=== PATIENT | female | born 1980 | race Caucasian/White ===

== ENCOUNTER 2022-05-20 07:09 | Emergency (ER) | payer OTHER, SELFPAY ==
[2022-05-20 07:34] VITALS: BP 132/78; PULSE 97; RESP 18; TEMP 37.6; O2SAT 99; BMI 26.5
--- NOTE | 2022-05-20 07:41 | ED.URI ---
HPI - URI/Sore Throat General Chief Complaint: Upper Respiratory Symptoms Stated Complaint: neck swollen, hives Time Seen by Provider: 05/20/22 07:20 History of Present Illness HPI Narrative: Patient is a 41-year-old female who presents with sore throat and upper respiratory like symptoms ongoing for last couple of days. She previously had an urine infection she took leftover clindamycin for last night this morning she woke up with hives all over her neck and arms and trunk. She says it hurts to swallow but it has been hurting to swallow she has not felt well. She is previously taken clindamycin without any difficulty. She denies any new soaps or other things. Related Data Previous Rx's Medication Instructions Recorded epinephrine 0.3 mg/0.3 mL 0.3 mg (0.3 mL) IM Q5-15M PRN 05/20/22 injection, auto-injector anaphylaxis #2 ea prednisone 20 mg tablet 40 mg PO DAILY #10 tabs 05/20/22 Allergies Allergy/AdvReac Type Severity Reaction Status Date / Time Penicillins Allergy Rash Verified 05/20/22 07:33 Review of Systems Review of Systems ROS Unobtainable: All systems reviewed & are unremarkable except as noted in HPI and below Patient History Social History Smoking Status: Never smoker Exam Initial Vital Signs Initial Vital Signs: Vital Signs Temperature 99.6 F 05/20/22 07:34 Pulse Rate 97 H 05/20/22 07:34 Respiratory Rate 18 05/20/22 07:34 Blood Pressure 132/78 05/20/22 07:34 Pulse Oximetry 99 05/20/22 07:34 Oxygen Delivery Method 05/20/22 07:34 GENERAL: A 41-year-old female appears uncomfortable but no acute distress HEENT: Head atraumatic,EOMI, pupils reactive, face symmetric, moist mucous membranes EARS: Left ear mildly erythematous possible fluid right ear is within normal limits PHARYNX: Petechiae noted roof of mouth no significant obvious swelling no tonsillar exudate CARDIOVASCULAR: Regular rate and rhythm without murmurs, rubs or gallops. RESPIRATORY: Breath sounds equal bilaterally, no wheezes rales or rhonchi. ABDOMEN: Soft, nontender. Normoactive bowel sounds all 4 quadrants. No guarding or rebound. EXTREMITIES: Normal range of motion, no clubbing or edema. Neurovascularly intact NEUROLOGICAL: Alert and oriented x4.Normal gait and speech. SKIN: Hives on neck and arms Course Orders Ordered: ED Orders 05/20/22 08:53 BMP [Basic Metabolic Panel] Stat CBC Auto Diff [Complete Blood Count AUTO DIFF] Stat Discontinued Medications Diphenhydramine HCl (Diphenhydramine 25 Mg Tablet) 50 mg PO NOW ONE Stop: 05/20/22 07:42 Last Admin: 05/20/22 07:53 Dose: 50 mg Documented By: RAVI Epinephrine HCl (Epinephrine 1 Mg/Ml) 0.5 mg IM NOW ONE Stop: 05/20/22 08:43 Last Admin: 05/20/22 08:51 Dose: 0.5 mg Documented By: MELYSSA Prednisone (Prednisone 20 Mg Tablet) 40 mg PO NOW ONE Stop: 05/20/22 07:42 Last Admin: 05/20/22 07:54 Dose: 40 mg Documented By: RAVI Vital Signs Vital signs: Vital Signs - 8 hr 05/20/22 09:30 05/20/22 09:30 05/20/22 09:47 Pulse Rate 101 H 102 H Respiratory Rate 16 20 Blood Pressure 127/67 Pulse Oximetry 100 99 05/20/22 11:06 Pulse Rate Respiratory Rate Blood Pressure 140/65 Pulse Oximetry MDM - URI/Sore Throat Lab Data 05/20/22 08:53 05/20/22 08:53 Labs: Lab Results 05/20/22 05/20/22 05/20/22 Range/Units 07:25 08:53 08:53 WBC 9.4 (4.5-11.0) X10^3/uL RBC 4.48 (4.0-5.2) X10^6/uL Hgb 13.7 (12.0-16.0) g/dL Hct 40.5 (36-46) % MCV 90.5 (80-100) fL MCH 30.6 (26-34) PG MCHC 33.9 (30-36) % RDW 13.2 (11.6-14.8) % Plt Count 205 (150-400) X10^3/uL Neut % (Auto) 92.0 H (50-75) % Lymph % (Auto) 3.6 L (25-40) % [place] % (Auto) 3.1 (3-14) % Eos % (Auto) 1.1 L (2-4) % Baso % (Auto) 0.2 (0-2) % Neut # (Auto) 8700 H (9903-9271) /uL Lymph # (Auto) 300 L (2988-2337) /uL [place]att # (Auto) 300 (0-900) /uL Eos # (Auto) 100 (0-450) /uL Baso # (Auto) 0 (0-100) /uL Sodium 126 L (137-145) mmol/L Potassium 3.6 (3.4-5.1) mmol/L Chloride 93 L (98-107) mmol/L Carbon Dioxide 22 (22-32) mmol/L BUN 9 (7-17) mg/dL Creatinine 0.68 (0.52-1.04) mg/dL Estimated GFR > 60 (>60) mL/min BUN/Creatinine Ratio 13.2 (6-22) Glucose 131 H (70-100) mg/dL Calcium 8.0 L (8.4-10.2) mg/dL SARS-CoV-2 (PCR) Negative (Negative) Influenza A (RT-PCR) Flu a negative (NEGATIVE) Influenza B (RT-PCR) Flu b negative (NEGATIVE) RSV (PCR) Negative (Negative) Point of Care Testing Rapid Strep A Negative MDM Narrative Medical decision making narrative: Patient is a healthy 41-year-old female who presents with aspirate respiratory like symptoms and allergic like reaction. She did take clindamycin which she is previously taken and tolerated before. This morning woke up and hives. Her respiratory panel for influenza RSV and COVID are negative. Her strep is also negative however she does have some petechiae on the roof of her mouth, throat culture pending. At this time will treat with allergic medication Benadryl and prednisone here in the ED. She is feeling a little bit better. Awaiting for throat culture over the next couple days. She is allergic to penicillins possibly clindamycin now as well. No sign of anaphylaxis. Patient is re-evaluated she really has not had any improvement with Benadryl or prednisone she still feels like her throat is tight and she is forcing saliva down. She is given epinephrine, IV and blood work. Blood work is overall reassuring. Patient is re-evaluated after epinephrine she actually is feeling a lot better her hives are improving. I suspect this is probably an allergic reaction to clindamycin. She reports that she previously had had Keflex she tolerated it once however she did not tolerated a 2nd time. She previously tolerated clindamycin however she is did not tolerate it this 2nd time. Of note patient is found to have sodium of 126. I suspect this is from drinking water because she has not felt well. I still think that she probably has some sort of upper respiratory infection. No real cause of her upper respiratory like symptoms however at this time I am not going to give her any antibiotics. Will wait for her throat culture to return. Patient agrees with this. Discharge Plan Departure Patient Disposition: Home Clinical Impression: Acute anaphylaxis, Upper respiratory infection Instructions: DI for Anaphylaxis, DI for Viral Upper Respiratory Infection -- Adult Activity Restrictions/Additional Instructions: *You have been diagnosed with allergic reaction, upper respiratory infection *What to do: At this time it does appear that you are probably allergic to clindamycin. Your throat culture will take about 2-3 days. I will not start You any antibiotic due to her multiple allergies and current allergic reaction until that has come back. I think he most likely have a virus however your COVID influenza and RSV are negative. *Continue to take medications as directed --> [facility] [place] Prednisone 40 mg once a day for 5 days Benadryl 25-50 mg every 6 hours if needed for itching Epinephrine pen take if having anaphylaxis like throat swelling symptoms Shanika with you at all times *Follow up with your primary care provider in 2-3 days or call [phone] *Return to ER if you should have increasing throat swelling worsening rash difficulty brief or any new, worsening or concerning symptoms Prescriptions: New prednisone 20 mg tablet 40 mg PO DAILY Qty: 10 0RF epinephrine 0.3 mg/0.3 mL auto-injector 0.3 mg IM Q5-15M PRN (Reason: anaphylaxis) Qty: 2 0RF Rx Instructions: do not exceed 3 doses per episode Stand Alone Forms: Patient Portal/API
[2022-05-20] MEDS: diphenhydrAMINE 25 MG TABLET 50 MG PO (07:53)
[2022-05-20] MEDS: predniSONE 20 MG TABLET 40 MG PO (07:54)
[2022-05-20 08:14] LABS: Influenza A - CEPHEID Flu A NEGATIVE (NEGATIVE); Influenza B - CEPHEID Flu B NEGATIVE (NEGATIVE); Respiratory Syncytial Virus Negative (Negative)
[2022-05-20 08:15] LABS: COVID-19 CEPHEID 4-PLEX PCR Negative (Negative)
[2022-05-20] MEDS: EPINEPHrine 1 MG/ML 0.5 MG IM (08:51)
[2022-05-20 08:54] VITALS: PULSE 94; O2SAT 98
[2022-05-20 08:59] LABS: Add Manual Diff / Slide Review NO; Basophils Absolute Auto 0 /uL (0-100); Basophils Percent Auto 0.2 % (0-2); Eosinophils Absolute Auto 100 /uL (0-450); Eosinophils Percent Auto 1.1 % (2-4); Hematocrit 40.5 % (36-46); Hemoglobin 13.7 g/dL (12.0-16.0); Lymphocytes Absolute Auto 300 /uL (1100-4500); Lymphocytes Percent Auto 3.6 % (25-40); Mean Corpuscular HGB Conc 33.9 % (30-36); Mean Corpuscular Hemoglobin 30.6 PG (26-34); Mean Corpuscular Volume 90.5 fL (80-100); Monocytes Absolute Auto 300 /uL (0-900); Monocytes Percent Auto 3.1 % (3-14); Neutrophils Absolute Auto 8700 /uL (1500-7000); Platelet Count 205 X10^3/uL (150-400); Red Blood Cell Count 4.48 X10^6/uL (4.0-5.2); Red Cell Distribution Width 13.2 % (11.6-14.8); White Blood Cell Count 9.4 X10^3/uL (4.5-11.0)
[2022-05-20 09:00] VITALS: BP 116/81; PULSE 98; RESP 19; O2SAT 98
[2022-05-20 09:10] LABS: BUN Creatinine Ratio 13.2 (6-22); Blood Urea Nitrogen 9 mg/dL (7-17); Carbon Dioxide 22 mmol/L (22-32); Chloride 93 mmol/L (98-107); Estimated Glomerular Filt Rate > 60 mL/min (>60); Glucose 131 mg/dL (70-100); HEMOLYSIS < 15 (0-50); Potassium 3.6 mmol/L (3.4-5.1); Sodium 126 mmol/L (137-145)
[2022-05-20 09:30] VITALS: BP 127/67; PULSE 101; RESP 16; O2SAT 100
[2022-05-20 09:47] VITALS: PULSE 102; RESP 20; O2SAT 99
[2022-05-20 11:06] VITALS: BP 140/65
== END 2022-05-20 11:10 | disposition home or self-care (01) ==
PROVIDERS: Emergency Provider Emergency Medicine
DX: T88.6XXA Anaphylactic reaction due to adverse effect of correct drug or medicament properly administered, initial encounter (principal); T36.8X5A Adverse effect of other systemic antibiotics, initial encounter; J06.9 Acute upper respiratory infection, unspecified; Z20.822 Contact with and (suspected) exposure to COVID-19
CPT/HCPCS: 0241U; 36415; 80048; 85025; 87070; 87880; 96372; 99283; 99284; J0171

== ENCOUNTER 2022-05-25 09:32 | Emergency (ER) | payer OTHER, SELFPAY ==
[2022-05-25] VITALS (12 sets, daily range): BP systolic 116–177; BP diastolic 63–97; PULSE 79–106; RESP 17–19; TEMP 36.6–37.1; O2SAT 95–97; BMI 28.3
[2022-05-25 11:10] LABS: Add Manual Diff / Slide Review NO; Basophils Absolute Auto 100 /uL (0-100); Basophils Percent Auto 0.3 % (0-2); Eosinophils Absolute Auto 0 /uL (0-450); Eosinophils Percent Auto 0.2 % (2-4); Hematocrit 38.6 % (36-46); Hemoglobin 13.2 g/dL (12.0-16.0); Lymphocytes Absolute Auto 1200 /uL (1100-4500); Lymphocytes Percent Auto 5.1 % (25-40); Mean Corpuscular HGB Conc 34.3 % (30-36); Mean Corpuscular Hemoglobin 30.2 PG (26-34); Monocytes Absolute Auto 400 /uL (0-900); Monocytes Percent Auto 1.8 % (3-14); Neutrophils Absolute Auto 21000 /uL (1500-7000); Neutrophils Percent Auto 92.6 % (50-75); Platelet Count 402 X10^3/uL (150-400); Red Blood Cell Count 4.38 X10^6/uL (4.0-5.2); Red Cell Distribution Width 13.2 % (11.6-14.8); White Blood Cell Count 22.6 X10^3/uL (4.5-11.0)
[2022-05-25 11:13] LABS: Bilirubin Urine UA NEGATIVE (NEGATIVE); Glucose Urine UA NEGATIVE (Negative); Ketones Urine UA NEGATIVE (NEGATIVE); Leukocyte Esterase Urine UA NEGATIVE (NEGATIVE); Nitrite Urine UA NEGATIVE (Negative); Occult Blood Urine UA NEGATIVE (Negative); Protein Urine UA NEGATIVE (Negative); Specific Gravity Urine UA <=1.005 (1.000-1.035); Urobilinogen Urine UA 0.2 E.U./dL (0.2)
[2022-05-25 11:15] LABS: Alanine Aminotransferase 40 IU/L (<35); Albumin 3.4 g/dL (3.5-5.0); Alkaline Phosphatase 93 U/L (38-126); Aspartate Aminotransferase 28 IU/L (14-36); BUN Creatinine Ratio 25.4 (6-22); Bilirubin Total 0.5 mg/dL (0.2-1.3); Blood Urea Nitrogen 16 mg/dL (7-17); Calcium 8.9 mg/dL (8.4-10.2); Carbon Dioxide 22 mmol/L (22-32); Chloride 97 mmol/L (98-107); Estimated Glomerular Filt Rate > 60 mL/min (>60); Globulin 3.5 g/dL (1.7-4.1); Glucose 166 mg/dL (70-100); HEMOLYSIS < 15 (0-50); Lipase 232 U/L (23-300); Potassium 3.8 mmol/L (3.4-5.1); Sodium 130 mmol/L (137-145); Total Protein 6.9 g/dL (6.3-8.2)
[2022-05-25 11:43] LABS: Appearance Urine UA CLEAR; Color Urine UA Straw; RBC Urine None Seen (0-5/HPF); WBC Urine 0-1/HPF (0-5/HPF)
[2022-05-25 11:44] LABS: Bacteria Urine Moderate (10-30); Culture Indicated Urine Cult Not Indicated; Squamous Epithelial Cell Urine 5-10 /HPF (0-5/HPF)
[2022-05-25 11:54] LABS: Lactate (Lactic Acid) 1.4 mmol/L (0.7-2.1)
[2022-05-25 11:59] LABS: Pregnancy Test Urine Negative (Negative)
[2022-05-25 12:21] LABS: Procalcitonin 0.94 ng/mL (<0.5)
--- NOTE | 2022-05-25 13:15 | ED_ITS ---
HPI - Recheck/Abnormal Lab/Rx General Chief Complaint: Recheck/Abnormal Lab/Rx Stated Complaint: Sent by [facility] white blood cell is high Time Seen by Provider: 05/25/22 10:54 Source: patient Mode of arrival: Ambulatory Limitations: no limitations History of Present Illness HPI narrative: This is a 41-year-old female with history of hypertension and hypothyroidism. Patient states she is felt unwell for about a week to 2 weeks. She states initially she had ear pain and dental pain and was started on clindamycin she appeared to have a reaction last with rashes, hives, difficulty or painful swallowing while taking clindamycin. Patient states that seemed to improve the rash is almost completely resolved but is still slightly present. She has developed fevers which have been persisting most day she is not had 1 today but up to 104 F She describes headache a little bit more at the base of the school and a little bit of her neck but describes them as moderate. She states no increased pain with movement of her neck. She denies chest pain or pressure, she is had nasal congestion that has been improving. Dental pain has resolved, ear pain is occasional. She states she had her really sore throat and neck it was very swollen after the clindamycin but has been getting better. She states she is had a cough with occasional productive whitish sputum. She denies any wheezing she does not feel particularly short of breath. She denies nausea or vomiting except for last week the day that she had her reaction. She denies any dysuria, urgency or frequency. She denies diarrhea or constipation. No vaginal bleeding or discharge. No pelvic or flank or abdominal pain. No new rashes or skin changes and states her rash has been resolving. Her and her noted a little bit of a red patch on the back of her scalp. She has not had similar issues in the past. She was on prednisone 40 mg daily. No other new medications or prescriptions or antibiotics since last week. She is had C- section x3. No tobacco, alcohol or illicit. No known sick contacts. No recent travel. Related Data Previous Rx's Medication Instructions Recorded epinephrine 0.3 mg/0.3 mL 0.3 mg (0.3 mL) IM Q5-15M PRN 05/20/22 injection, auto-injector anaphylaxis #2 ea prednisone 20 mg tablet 40 mg PO DAILY #10 tabs 05/20/22 levofloxacin 750 mg tablet 750 mg PO DAILY 7 days #7 tabs 05/25/22 Allergies Allergy/AdvReac Type Severity Reaction Status Date / Time Penicillins Allergy Rash Verified 05/25/22 09:39 Review of Systems Review of Systems ROS Unobtainable: All systems reviewed & are unremarkable except as noted in HPI and below Patient History Social History Smoking Status: Never smoker Smoking Status: Never smoker alcohol intake frequency: a few times a week Substance Use Type: does not use Exam Narrative Exam Narrative: GEN: well nourished, nontoxic female, alert and oriented x 3, patient appears to be in mild distress. HEENT: Atraumatic, pupils are equal round reactive to light, extraocular mo vements are intact, nares are clear, TMs are clear with no fluid, there is no conjunctival pallor. Throat is clear without any exudates, erythema, tonsillar enlargement or uvular deviation, mild submandibular lymphadenopathy. Normal speech, no hoarseness. Patient has full range of motion of her neck flexion- extension, side bending and rotation. No meningeal signs. HEART: Regular rate and rhythm without murmur, clicks, rubs. Pulses are equal in upper and lower extremities LUNGS:Lungs clear to auscultation, no wheezes, rales, crackles, chest moves symmetrically, no tachypnea accessory muscle use. Speaks in full sentences. ABD:bowel sounds normal, soft, non-tender, no guarding, rebound, rigidity, no masses noted, no hepatosplenomegaly :No CVA tenderness MSCL: Non-tender, no muscle atrophy, muscles strength 5/5 upper and lower extremities, full range of motion, normal gait. After examination patient got off the gurney and ambulated to the bathroom without any assistance. NEURO:CN 2-12 intact, sensation normal SKIN: Patient has some slight erythema but no fluctuance lumps or changes posterior scalp. Patient has some slight redness of her anterior neck and shows me pictures of her her rash appears to have significantly improved. She had significant erythematous patchy rash that did appear hive-like on her upper lower extremities torso and neck. Initial Vital Signs Initial Vital Signs: Vital Signs Temperature 98.8 F 05/25/22 09:34 Pulse Rate 106 H 05/25/22 09:34 Respiratory Rate 17 05/25/22 09:34 Blood Pressure 177/97 H 05/25/22 09:34 Pulse Oximetry 97 05/25/22 09:34 Oxygen Delivery Method 05/25/22 09:34 Course Orders Ordered: ED Orders 05/25/22 10:45 CBC Auto Diff [Complete Blood Count AUTO DIFF] Stat CMP [Comprehensive Metabolic Panel] Stat Lactate (Lactic Acid) Stat Lipase Stat Test Urine Stat Procalcitonin Stat Urinalysis and Microscopic Stat 05/25/22 12:30 Blood Culture Stat 05/25/22 13:56 Chest [XR chest 2V] Stat Discontinued Medications Sodium Chloride (Normal Saline 0.9%) 1,000 mls @ 1,000 mls/hr IV BOLUS ONE Stop: 05/25/22 14:55 Last Infusion: 05/25/22 15:41 Dose: 0 mls/hr Documented By: Admin: 05/25/22 14:07 Dose: 1,000 mls/hr Documented By: RAVI Ketorolac Tromethamine (Ketorolac 30 Mg/Ml Vial) 15 mg IV NOW ONE Stop: 05/25/22 13:57 Last Admin: 05/25/22 14:07 Dose: 15 mg Documented By: RAVI Vital Signs Vital signs: Vital Signs - 8 hr 05/25/22 11:00 05/25/22 10:56 05/25/22 11:00 Temperature Pulse Rate 87 88 Respiratory Rate 18 Blood Pressure 133/74 133/84 Pulse Oximetry 96 96 Oxygen Delivery Method Room Air 05/25/22 11:00 05/25/22 11:30 05/25/22 11:30 Temperature Pulse Rate 87 84 Respiratory Rate Blood Pressure 125/80 Pulse Oximetry 96 95 Oxygen Delivery Method 05/25/22 12:00 05/25/22 12:00 05/25/22 12:30 Temperature Pulse Rate 79 82 Respiratory Rate Blood Pressure 135/83 Pulse Oximetry 95 97 Oxygen Delivery Method 05/25/22 12:33 05/25/22 12:33 05/25/22 13:00 Temperature Pulse Rate 87 Respiratory Rate Blood Pressure 122/78 120/70 Pulse Oximetry 95 Oxygen Delivery Method 05/25/22 13:00 05/25/22 13:30 05/25/22 13:30 Temperature Pulse Rate 82 83 Respiratory Rate Blood Pressure 116/63 Pulse Oximetry 95 95 Oxygen Delivery Method 05/25/22 14:00 05/25/22 14:00 05/25/22 14:17 Temperature Pulse Rate 87 86 Respiratory Rate Blood Pressure 125/87 Pulse Oximetry 96 97 Oxygen Delivery Method 05/25/22 14:17 05/25/22 15:58 Temperature 97.9 F Pulse Rate 96 H Respiratory Rate 19 Blood Pressure 124/67 127/80 Pulse Oximetry 95 Oxygen Delivery Method Room Air MDM - Recheck/Abnormal Lab/Rx Lab Data 05/25/22 10:45 05/25/22 10:45 Labs: Lab Results 05/25/22 05/25/22 05/25/22 Range/Units 10:45 10:45 10:45 WBC 22.6 H (4.5-11.0) X10^3/uL RBC 4.38 (4.0-5.2) X10^6/uL Hgb 13.2 (12.0-16.0) g/dL Hct 38.6 (36-46) % MCV 88.0 (80-100) fL MCH 30.2 (26-34) PG MCHC 34.3 (30-36) % RDW 13.2 (11.6-14.8) % Plt Count 402 H (150-400) X10^3/uL Neut % (Auto) 92.6 H (50-75) % Lymph % (Auto) 5.1 L (25-40) % Page % (Auto) 1.8 L (3-14) % Eos % (Auto) 0.2 L (2-4) % Baso % (Auto) 0.3 (0-2) % Neut # (Auto) 55207 H (1035-1869) /uL Lymph # (Auto) 1200 (1352-6246) /uL Page # (Auto) 400 (0-900) /uL Eos # (Auto) 0 (0-450) /uL Baso # (Auto) 100 (0-100) /uL Sodium 130 L (137-145) mmol/L Potassium 3.8 (3.4-5.1) mmol/L Chloride 97 L (98-107) mmol/L Carbon Dioxide 22 (22-32) mmol/L BUN 16 (7-17) mg/dL Creatinine 0.63 (0.52-1.04) mg/dL Estimated GFR > 60 (>60) mL/min BUN/Creatinine Ratio 25.4 H (6-22) Glucose 166 H (70-100) mg/dL Lactate (0.7-2.1) mmol/L Calcium 8.9 (8.4-10.2) mg/dL Total Bilirubin 0.5 (0.2-1.3) mg/dL AST 28 (14-36) IU/L ALT 40 H (<35) IU/L Alkaline Phosphatase 93 (38-126) U/L Total Protein 6.9 (6.3-8.2) g/dL Albumin 3.4 L (3.5-5.0) g/dL Globulin 3.5 (1.7-4.1) g/dL Albumin/Globulin Ratio 1.0 (1.0-2.8) Lipase 232 (23-300) U/L Procalcitonin (<0.5) ng/mL Urine Color Straw Urine Appearance Clear Urine pH 6.0 (4.5-8.0) Ur Specific [place] <=1.005 (1.000-1.035) Urine Protein Negative (Negative) Urine Glucose (UA) Negative (Negative) g/dL Urine Ketones Negative (NEGATIVE) Urine Occult Blood Negative (Negative) Urine Nitrate Negative (Negative) Urine Bilirubin Negative (NEGATIVE) Urine Urobilinogen 0.2 (0.2) E.U./dL Ur Leukocyte Esterase Negative (NEGATIVE) Urine RBC None seen (0-5/HPF) Urine WBC 0-1/hpf (0-5/HPF) Ur Squamous Epith Cells 5-10 /hpf H (0-5/HPF) Urine Bacteria Moderate (10-30) H (None) Ur Culture Indicated? Cult not indicated Urine Test (Negative) 05/25/22 05/25/22 05/25/22 Range/Units 10:45 10:45 10:45 WBC (4.5-11.0) X10^3/uL RBC (4.0-5.2) X10^6/uL Hgb (12.0-16.0) g/dL Hct (36-46) % MCV (80-100) fL MCH (26-34) PG MCHC (30-36) % RDW (11.6-14.8) % Plt Count (150-400) X10^3/uL Neut % (Auto) (50-75) % Lymph % (Auto) (25-40) % Page % (Auto) (3-14) % Eos % (Auto) (2-4) % Baso % (Auto) (0-2) % Neut # (Auto) (1470-4288) /uL Lymph # (Auto) (1899-7413) /uL Page # (Auto) (0-900) /uL Eos # (Auto) (0-450) /uL Baso # (Auto) (0-100) /uL Sodium (137-145) mmol/L Potassium (3.4-5.1) mmol/L Chloride (98-107) mmol/L Carbon Dioxide (22-32) mmol/L BUN (7-17) mg/dL Creatinine (0.52-1.04) mg/dL Estimated GFR (>60) mL/min BUN/Creatinine Ratio (6-22) Glucose (70-100) mg/dL Lactate 1.4 (0.7-2.1) mmol/L Calcium (8.4-10.2) mg/dL Total Bilirubin (0.2-1.3) mg/dL AST (14-36) IU/L ALT (<35) IU/L Alkaline Phosphatase (38-126) U/L Total Protein (6.3-8.2) g/dL Albumin (3.5-5.0) g/dL Globulin (1.7-4.1) g/dL Albumin/Globulin Ratio (1.0-2.8) Lipase (23-300) U/L Procalcitonin 0.94 H (<0.5) ng/mL Urine Color Urine Appearance Urine pH (4.5-8.0) Ur Specific [place] (1.000-1.035) Urine Protein (Negative) Urine Glucose (UA) (Negative) g/dL Urine Ketones (NEGATIVE) Urine Occult Blood (Negative) Urine Nitrate (Negative) Urine Bilirubin (NEGATIVE) Urine Urobilinogen (0.2) E.U./dL Ur Leukocyte Esterase (NEGATIVE) Urine RBC (0-5/HPF) Urine WBC (0-5/HPF) Ur Squamous Epith Cells (0-5/HPF) Urine Bacteria (None) Ur Culture Indicated? Urine Test Negative (Negative) Imaging Data Chest x-ray: Radiologist's Impression: Close Chest X-Ray (Signed) Deena Clifford - 05/25/22 Launch?[address] [address] XRay Report Signed Patient: Grecia Paige MR#: [id number] : 1980 Acct:[id number] Age/Sex: 41 / F Date of Service: 05/25/22 Loc: ED Accession Number: [id number] ?? Procedure: XR chest 2V Ordering Provider: Lilly Cole D.O. PROCEDURE:? XR CHEST 2V ? INDICATIONS:? elevated wbc, cough, fevers x 1 week ? TECHNIQUE:? 2 views of the chest were acquired.? ? COMPARISON:? None. ? FINDINGS:? ? Surgical changes and devices:? None.? ? Lungs and pleura:? Lungs are clear.? No pleural effusions or pneumothorax.? ? Mediastinum:? Mediastinal contours are normal.? Heart size is normal.? ? Bones and chest wall:? No suspicious bony abnormalities.? Soft tissues appear unremarkable.? ? IMPRESSION:? No acute process. ? ? Dictated by: Deena Clifford M.D. on 05/25/2022 at 14:45 ? ? Approved by: Deena Clifford M.D. on 05/25/2022 at 14:46?? [facility] Narrative Medical decision making narrative: This is a 41-year-old female with at least a week if not longer of initially upper respiratory dental type infections that portion has improved accepts still had some mild congestion developed a little bit of cough with some mild productive sputum had what sounds like an anaphylactic or allergic reaction to clindamycin which she had been taking for presumed dental infection. Patient is nontoxic appearing. Her labs do show an elevated white count she is a leukocytosis and platelets are elevated from prior on 05/20/2022 shows leftward shift no bandemia neutrophils are 21,000., patient also has a positive procalcitonin, sodium is 130 improved from her sodium on 05/20/2022 chloride 97 potassium CO2 BUN creatinine are normal with a glucose of 166 lactate 1.4 with an ALT of 40 no other LFT changes, lipase is negative. Patient's urine shows moderate bacteria 5-10 squamous epithelial but no other clear sources of infection as nitrate and leukocyte negative. Urine is negative. Patient had negative flu, COVID and RSV. Discussed with patient I suspect she likely does have a bacterial infection with persistent fevers, chest x-ray was obtained shows no specific change was reviewed by myself as well. Urine has bacteria, squamous epithelials but no other signs of infection. Discussed with patient she is blood cultures pending these will not be resulted for 2 more days but I think would be appropriate to start antibiotics. Patient and I discussed her differential with no other clear source she does complain of a headache but describes it as moderate not worsening with no meningeal signs discussed with patient this has much less likely to be her source. Discussed with patient my suspicion for meningitis is low but is within the differential, discussed risks versus benefits of lumbar puncture she defers at this time. Discussed they would cover her with an antibiotic for possible atypical pneumonias her symptoms have been more respiratory in nature with her hyponatremia would cover with Levaquin. Discussed return precautions and signs and symptoms to watch. Patient is overall well-appearing, discussed blood cultures are pending if these are positive she should be contacted. We also discussed with her and her the importance of returning if she is not improving over the next several days. Discharge Plan Departure Patient Disposition: Home Clinical Impression: Fever Instructions: DI for Fever (Symptom) -- Adult Activity Restrictions/Additional Instructions: The exact cause of your fevers has not been found but I suspect you may have any typical pneumonia. You can take Tylenol up to a 1000 mg every 6 hours and/or ibuprofen up to 600 mg every 6 hours Take antibiotics until completely gone. There is a prescription for Diflucan for yeast infection sent to start after your antibiotics. Prescription sent to [facility] in [place]. Please return for persistent fevers worsening headaches, neck pain, altered mental status, new or worsening rash, chest pain, shortness of breath, persistent vomiting, black or bloody stools or other new or concerning changes. Prescriptions: New levofloxacin 750 mg tablet 750 mg PO DAILY 7 Days Qty: 7 0RF No Action prednisone 20 mg tablet 40 mg PO DAILY Qty: 10 0RF epinephrine 0.3 mg/0.3 mL auto-injector 0.3 mg IM Q5-15M PRN (Reason: anaphylaxis) Qty: 2 0RF Rx Instructions: do not exceed 3 doses per episode Referrals: Miscellaneous,Doctor, MD [Primary Care Provider] - Stand Alone Forms: Patient Portal/API
--- NOTE | 2022-05-25 13:56 | DI.RAD.S_ITS ---
PROCEDURE: XR CHEST 2V INDICATIONS: elevated wbc, cough, fevers x 1 week TECHNIQUE: 2 views of the chest were acquired. COMPARISON: None. FINDINGS: Surgical changes and devices: None. Lungs and pleura: Lungs are clear. No pleural effusions or pneumothorax. Mediastinum: Mediastinal contours are normal. Heart size is normal. Bones and chest wall: No suspicious bony abnormalities. Soft tissues appear unremarkable. IMPRESSION: No acute process. Dictated by: Deena Clifford M.D. on 05/25/2022 at 14:45 Approved by: Deena Clifford M.D. on 05/25/2022 at 14:46
[2022-05-25] MEDS: SODIUM CHLORIDE 0.9% 1,000 ML 1000 ML IV (14:07)
[2022-05-25] MEDS: KETOROLAC 30 MG/ML VIAL 15 MG IV (14:07)
== END 2022-05-25 15:59 | disposition home or self-care (01) ==
PROVIDERS: Emergency Provider Emergency Medicine
DX: R50.9 Fever, unspecified (principal); D72.829 Elevated white blood cell count, unspecified; M54.2 Cervicalgia; R05.9 Cough, unspecified
CPT/HCPCS: 36415; 71046; 80053; 81001; 81025; 83605; 83690; 84145; 85025; 87040; 96361; 96374; 99284; J1885